=== PATIENT | male | born 1955 | race Hispanic/Latino ===

== ENCOUNTER 2018-02-13 21:28 | Emergency (ER) | payer MEDICARE, OTHER ==
[~2018-02-13] VITALS: Ht 185.4 cm; Wt 79.4 kg
--- OUTSIDE RECORDS SUMMARY | 2018-02-13 21:32 | XMS REPORT | Clinical Summary ---
Author Author GUEVAR[facility]ITTeton [facility] HospitalEtaoshi [facility] HospitalStayfilmYak[facility] Address Unknown Phone Unavailable Care Team Providers Care Stable Helper Name Role Phone Nilda Avalos MD PCP Unavailable Allergies No Known Allergies Medications End Date Status Medication Sig Dispensed Refills Start Date Active metoprolol (TOPROL-XL) 25 Take 25 mg by 0 MG 24 hr tablet mouth daily. Active traMADol (ULTRAM) 50 mg Take 50 mg by 0 tablet mouth every 6 (six) hours as needed for Pain . Active aspirin 81 MG EC tablet Take 81 mg by 0 mouth daily. Active atorvastatin (LIPITOR) 40 Take 40 mg by 0 MG tablet mouth daily. Active buPROPion (WELLBUTRIN XL) Take 150 mg 0 150 MG 24 hr tablet by mouth daily. Active valsartan (DIOVAN) 40 MG Take 40 mg by 0 tablet mouth daily. Active clopidogrel (PLAVIX) 75 Take 75 mg by 0 mg tablet mouth. Active PROGRAF 1 mg Take 1 60 capsule 5 capsuleIndications: S/P capsule (1 mg 8 liver transplant (HCC), total) by Immunosuppression (HCC) mouth 2 (two) times daily. Active sildenafil (VIAGRA) 100 Take 100 mg 0 MG tablet by mouth daily as needed for Erectile Dysfunction. Active simethicone (MYLICON) 80 Take 80 mg by 0 MG chewable tablet mouth as needed. 05/04/2017 Discontinued mycophenolate (CELLCEPT) Take 2 120 capsule 5 250 mg capsules (500 7 capsuleIndications: mg total) by Status post liver mouth 2 (two) transplantation (HCC), times daily. HCC (hepatocellular carcinoma) (HCC), Hepatitis C virus infection without hepatic coma, unspecified chronicity, Immunosuppression (HCC), Elevated liver enzymes 09/06/2017 Discontinued donepezil (ARICEPT) 5 MG Take 5 mg by 0 tablet mouth nightly. 09/06/2017 Discontinued tadalafil (CIALIS) 10 MG Take 10 mg by 0 tablet mouth daily as needed for Erectile Dysfunction. 06/03/2017 Discontinued PROGRAF 1 mg TAKE ONE 60 capsule 5 capsuleIndications: CAPSULE BY 7 Status post liver MOUTH TWICE transplantation (HCC), DAILY Immunosuppression (HCC) 09/06/2017 Discontinued mycophenolate (CELLCEPT) TAKE 2 120 capsule 5 250 mg CAPSULES(500 8 capsuleIndications: MG) BY MOUTH Status post liver TWICE DAILY transplantation (HCC), HCC (hepatocellular carcinoma) (HCC), Hepatitis C virus infection without hepatic coma, unspecified chronicity, Immunosuppression (HCC), Elevated liver enzymes 09/06/2017 Discontinued tacrolimus (PROGRAF) 1 MG Take 1 60 capsule 5 capsuleIndications: capsule (1 mg 8 Status post liver total) by transplantation (HCC), mouth 2 (two) Immunosuppression (HCC) times daily. 09/06/2017 Discontinued aluminum & magnesium Take 5 mLs by 0 hydroxide-simethicone mouth every 6 (MAALOX PLUS) 400-400-40 (six) hours mg/5 mL suspension as needed for Indigestion. Active Problems Problem Noted Date Hernia 07/31/2016 Ventral hernia 07/31/2016 Thrombocytopenia 07/26/2015 L thyroid nodule 07/26/2015 H/O liver transplant 07/26/2015 Cerebellar stroke 07/25/2015 Elevated liver enzymes 05/22/2015 Renal failure, acute 01/18/2014 Last Assessment & Plan: Renal failure requiring dialysis post-op, now resolved with normal Cr. Rash 12/21/2013 Last Assessment & Plan: Of an unclear etiology. Will refer to dermatology for further evaluation. Hypertension 08/10/2013 Last Assessment & Plan: -excellent BP control -continue current regimen Immunosuppression 08/10/2013 Last Assessment & Plan: -stable on prograf -D/C prednisone S/P liver transplant 08/02/2013 Last Assessment & Plan: 57 y/o male s/p OLT for HCV and HCC on 08/02/2013 who presents today for follow up. The patient is without complaints. He is scheduled for lab work which we will follow up. The patient is to return to clinic in 1 week. HCC (hepatocellular carcinoma) 12/26/2012 Last Assessment & Plan: -negative screening imaging thus far -patient to undergo screening US liver within next month -will send result to Oncology Hepatitis C 12/26/2012 Overview: Reportedly treated with interferon x1 year Last Assessment & Plan: No evidence of clinically significant recurrence; will continue to follow serial labs. 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 Management 01/13/2018 Telephone Transplant Hepatology Lilian Sauceda Labs Only (SPK W SPOUSE RE: LAB/RX RESULTS; NO MED CHANGES; REPEAT BLD WK X4 MTHS; 05/05/2018; [facility]; GGT;) 01/10/2018 Telephone Transplant Hepatology Logan Coreas MD 01/07/2018 Orders Only Transplant Hepatology Vanessa Nova, GLADIS Follow-up 09/30/2017 Telephone Transplant Hepatology Vanessa Nova, GLADIS Follow-up 09/10/2017 Telephone Transplant Hepatology Winnie Mcdowell Lab Results 09/09/2017 Telephone Transplant Hepatology Jeanne Calderon MD S/P liver transplant; Screening for malignant neoplasm; HCC (hepatocellular carcinoma) (HCC); Hepatitis C virus infection without hepatic coma, unspecified chronicity; Pulmonary nodule; Immunosuppression (HCC) 09/06/2017 Hospital Encounter Jeanne Calderon MD S/P liver transplant; Screening for malignant neoplasm; HCC (hepatocellular carcinoma) (HCC); Hepatitis C virus infection without hepatic coma, unspecified chronicity; Pulmonary nodule; Immunosuppression (HCC) 09/06/2017 Hospital Radiology Encounter Jeanne Calderon MD Cerebellar stroke (HCC); H/O liver transplant (HCC); HCC (hepatocellular carcinoma) (HCC); Hepatitis C virus infection without hepatic coma, unspecified chronicity; Immunosuppression (HCC); S/P liver transplant (HCC); Screening for malignant neoplasm 09/06/2017 Follow-Up Transplant Hepatology Jeanne Calderon MD S/P liver transplant; Screening for malignant neoplasm; HCC (hepatocellular carcinoma) (HCC); Hepatitis C virus infection without hepatic coma, unspecified chronicity; Pulmonary nodule; Immunosuppression (HCC) 09/06/2017 Orders Only Transplant Hepatology Vanessa Nova RN S/P liver transplant (Primary Dx); Immunosuppression (HCC) 08/09/2017 Orders Only Transplant Hepatology Winnie Mcdowell Lab Results 06/29/2017 Telephone Transplant Hepatology Logan Coreas MD Acute renal failure, unspecified acute renal failure type (HCC) (Primary Dx); S/P liver transplant; Immunosuppression (HCC); Hepatitis C virus carrier state (HCC); Kidney replaced by transplant; Essential hypertension, malignant; Chronic kidney disease, stage II (mild); Impending cerebrovascular accident (HCC); Hypopotassemia; Vitamin D deficiency 06/22/2017 Orders Only Lab Vanessa Nova RN S/P liver transplant (Primary Dx); Screening for malignant neoplasm; HCC (hepatocellular carcinoma) (HCC); Hepatitis C virus infection without hepatic coma, unspecified chronicity; Pulmonary nodule; Immunosuppression (HCC) 06/18/2017 Orders Only Transplant Hepatology Vanessa Nova, GLADIS Labs Only 06/18/2017 Telephone Transplant Hepatology Vanessa Nova, RN Follow-up 06/17/2017 Telephone Transplant Hepatology Vanessa Nova, GLADIS Status post liver transplantation (HCC); Immunosuppression (HCC) 06/03/2017 Orders Only Transplant Hepatology Logan Coreas MD Status post liver transplantation; HCC (hepatocellular carcinoma); Hepatitis C virus infection without hepatic coma, unspecified chronicity; Immunosuppression; Elevated liver enzymes 05/04/2017 Refill Transplant Hepatology Dina Santos Labs Only 03/04/2017 Telephone Transplant Hepatology after 02/12/2017 Immunizations Name Dates Previously Given Next Due Pneumococcal 09/19/2014 Polysaccharide (Pneumovax) Family History Relation Name Status Comments Brother Alive Father Alive Sister Alive Sister Alive Social History Date Tobacco Use Types Packs/Day Years Used Never Smoker 0 Smokeless Tobacco: Never Used Alcohol Use Drinks/Week oz/Week Comments No Sex Assigned at Date Recorded Not on file Industry Job Start Date Occupation Not on file Not on file Not on file Travel End Travel History Travel Start No recent travel history available. Last Filed Vital Signs Time Taken Vital Sign Reading 09/06/2017 10:04 AM CDT Blood Pressure 129/83 09/06/2017 10:04 AM CDT Pulse 66 09/06/2017 10:04 AM CDT Temperature 36.4 C (97.5 F) 09/06/2017 10:04 AM CDT Respiratory Rate 18 09/06/2017 10:04 AM CDT Oxygen Saturation 96% - Inhaled Oxygen - Concentration 09/06/2017 10:04 AM CDT Weight 89.5 kg (197 lb 6.4 oz) 09/06/2017 10:04 AM CDT Height 182.9 cm (6') 09/06/2017 10:04 AM CDT Body Mass Index 26.77 Plan of Treatment Health Maintenance Due Date Last Done Comments INFLUENZA VACCINE 11/08/2017 Implants Device Identifier Shelf Expiration Date Model / Serial / Lot Implanted Type Area Manufactur er 10/09/2015 [id number] / / [id number] Mesh,Ventralight St 4x6 Elliptical Mesh N/A: Abdomen [employer] - [id number] Implanted: Qty: 1 on 09/18/2014 by Paty Hall MD 02/04/2018 [id number] / / [id number] Mesh Ventralight 6x8 [id number] - Mesh N/A: Abdomen CR [id number] BARD:DAVOL Implanted: Qty: 1 on 07/31/2016 by Paty Hall MD Procedures Comments Procedure Name Priority Date/Time Associated Diagnosis TACROLIMUS Routine 01/07/2018 7:36 AM SENIOR PROCUREMENT MANAGER VITAMIN D, 25-HYDROXY Routine 01/07/2018 7:36 AM SENIOR PROCUREMENT MANAGER CBC W/PLT COUNT & AUTO Routine 01/07/2018 DIFFERENTIAL 7:36 AM SENIOR PROCUREMENT MANAGER HEPATIC FUNCTION PANEL Routine 01/07/2018 7:36 AM SENIOR PROCUREMENT MANAGER BASIC METABOLIC PANEL (7) Routine 01/07/2018 7:36 AM SENIOR PROCUREMENT MANAGER PHOSPHORUS Routine 01/07/2018 7:36 AM SENIOR PROCUREMENT MANAGER MAGNESIUM Routine 01/07/2018 7:36 AM SENIOR PROCUREMENT MANAGER US ABDOMINAL WITH DOPPLER Routine 09/06/2017 S/P liver transplant 12:20 PM CDT Screening for malignant neoplasm HCC (hepatocellular carcinoma) (HCC) Hepatitis C virus infection without hepatic coma, unspecified chronicity Pulmonary nodule Immunosuppression (HCC) XR CHEST 2 VIEWS Routine 09/06/2017 S/P liver transplant 11:28 AM CDT Screening for malignant neoplasm HCC (hepatocellular carcinoma) (HCC) Hepatitis C virus infection without hepatic coma, unspecified chronicity Pulmonary nodule Immunosuppression (HCC) CBC W/PLT COUNT & AUTO Routine 09/06/2017 S/P liver transplant DIFFERENTIAL 9:09 AM CDT Screening for malignant neoplasm HCC (hepatocellular carcinoma) (HCC) Hepatitis C virus infection without hepatic coma, unspecified chronicity Pulmonary nodule Immunosuppression (HCC) HEPATITIS C PCR, Routine 09/06/2017 S/P liver transplant QUANTITATIVE 9:09 AM CDT Screening for malignant neoplasm HCC (hepatocellular carcinoma) (HCC) Hepatitis C virus infection without hepatic coma, unspecified chronicity Pulmonary nodule Immunosuppression (HCC) TACROLIMUS LEVEL Routine 09/06/2017 S/P liver transplant 9:09 AM CDT Screening for malignant neoplasm HCC (hepatocellular carcinoma) (HCC) Hepatitis C virus infection without hepatic coma, unspecified chronicity Pulmonary nodule Immunosuppression (HCC) ALPHA FETOPROTEIN (AFP), Routine 09/06/2017 S/P liver transplant TUMOR MARKER 9:09 AM CDT Screening for malignant neoplasm HCC (hepatocellular carcinoma) (HCC) Hepatitis C virus infection without hepatic coma, unspecified chronicity Pulmonary nodule Immunosuppression (HCC) MAGNESIUM Routine 09/06/2017 S/P liver transplant 9:09 AM CDT Screening for malignant neoplasm HCC (hepatocellular carcinoma) (HCC) Hepatitis C virus infection without hepatic coma, unspecified chronicity Pulmonary nodule Immunosuppression (HCC) LIPID PANEL Routine 09/06/2017 S/P liver transplant 9:09 AM CDT Screening for malignant neoplasm HCC (hepatocellular carcinoma) (HCC) Hepatitis C virus infection without hepatic coma, unspecified chronicity Pulmonary nodule Immunosuppression (HCC) COMPREHENSIVE METABOLIC Routine 09/06/2017 S/P liver transplant PANEL 9:09 AM CDT Screening for malignant neoplasm HCC (hepatocellular carcinoma) (HCC) Hepatitis C virus infection without hepatic coma, unspecified chronicity Pulmonary nodule Immunosuppression (HCC) CBC W/PLT COUNT & AUTO Routine 09/06/2017 S/P liver transplant DIFFERENTIAL 9:09 AM CDT Screening for malignant neoplasm HCC (hepatocellular carcinoma) (HCC) Hepatitis C virus infection without hepatic coma, unspecified chronicity Pulmonary nodule Immunosuppression (HCC) BILIRUBIN, DIRECT Routine 09/06/2017 S/P liver transplant 9:09 AM CDT Screening for malignant neoplasm HCC (hepatocellular carcinoma) (HCC) Hepatitis C virus infection without hepatic coma, unspecified chronicity Pulmonary nodule Immunosuppression (HCC) CBC W/PLT COUNT & AUTO Routine 06/22/2017 S/P liver transplant DIFFERENTIAL 9:55 AM CDT Immunosuppression (HCC) Acute renal failure, unspecified acute renal failure type (HCC) Hepatitis C virus carrier state (HCC) Kidney replaced by transplant Essential hypertension, malignant Chronic kidney disease, stage II (mild) Impending cerebrovascular accident (HCC) Hypopotassemia Vitamin D deficiency CREATININE, RANDOM URINE Routine 06/22/2017 S/P liver transplant 9:55 AM CDT Immunosuppression (HCC) Acute renal failure, unspecified acute renal failure type (HCC) Hepatitis C virus carrier state (HCC) Kidney replaced by transplant Essential hypertension, malignant Chronic kidney disease, stage II (mild) Impending cerebrovascular accident (HCC) Hypopotassemia Vitamin D deficiency PROTEIN, RANDOM URINE Routine 06/22/2017 S/P liver transplant 9:55 AM CDT Immunosuppression (HCC) Acute renal failure, unspecified acute renal failure type (HCC) Hepatitis C virus carrier state (HCC) Kidney replaced by transplant Essential hypertension, malignant Chronic kidney disease, stage II (mild) Impending cerebrovascular accident (HCC) Hypopotassemia Vitamin D deficiency URINALYSIS W/ REFLEX Routine 06/22/2017 S/P liver transplant URINE CULTURE 9:55 AM CDT Immunosuppression (HCC) Acute renal failure, unspecified acute renal failure type (HCC) Hepatitis C virus carrier state (HCC) Kidney replaced by transplant Essential hypertension, malignant Chronic kidney disease, stage II (mild) Impending cerebrovascular accident (HCC) Hypopotassemia Vitamin D deficiency PHOSPHORUS Routine 06/22/2017 S/P liver transplant 9:55 AM CDT Immunosuppression (HCC) Acute renal failure, unspecified acute renal failure type (HCC) Hepatitis C virus carrier state (HCC) Kidney replaced by transplant Essential hypertension, malignant Chronic kidney disease, stage II (mild) Impending cerebrovascular accident (HCC) Hypopotassemia Vitamin D deficiency TACROLIMUS LEVEL Routine 06/22/2017 S/P liver transplant 9:55 AM CDT Immunosuppression (HCC) Acute renal failure, unspecified acute renal failure type (HCC) Hepatitis C virus carrier state (HCC) Kidney replaced by transplant Essential hypertension, malignant Chronic kidney disease, stage II (mild) Impending cerebrovascular accident (HCC) Hypopotassemia Vitamin D deficiency MAGNESIUM Routine 06/22/2017 S/P liver transplant 9:55 AM CDT Immunosuppression (HCC) Acute renal failure, unspecified acute renal failure type (HCC) Hepatitis C virus carrier state (HCC) Kidney replaced by transplant Essential hypertension, malignant Chronic kidney disease, stage II (mild) Impending cerebrovascular accident (HCC) Hypopotassemia Vitamin D deficiency CBC W/PLT COUNT & AUTO Routine 06/22/2017 S/P liver transplant DIFFERENTIAL 9:55 AM CDT Immunosuppression (HCC) Acute renal failure, unspecified acute renal failure type (HCC) Hepatitis C virus carrier state (HCC) Kidney replaced by transplant Essential hypertension, malignant Chronic kidney disease, stage II (mild) Impending cerebrovascular accident (HCC) Hypopotassemia Vitamin D deficiency COMPREHENSIVE METABOLIC Routine 06/22/2017 S/P liver transplant PANEL 9:55 AM CDT Immunosuppression (HCC) Acute renal failure, unspecified acute renal failure type (HCC) Hepatitis C virus carrier state (HCC) Kidney replaced by transplant Essential hypertension, malignant Chronic kidney disease, stage II (mild) Impending cerebrovascular accident (HCC) Hypopotassemia Vitamin D deficiency BILIRUBIN, DIRECT Routine 06/22/2017 S/P liver transplant 9:55 AM CDT Immunosuppression (HCC) Acute renal failure, unspecified acute renal failure type (HCC) Hepatitis C virus carrier state (HCC) Kidney replaced by transplant Essential hypertension, malignant Chronic kidney disease, stage II (mild) Impending cerebrovascular accident (HCC) Hypopotassemia Vitamin D deficiency after 02/12/2017 Results * TACROLIMUS (01/07/2018 7:36 AM SENIOR PROCUREMENT MANAGER) Tacrolimus, Highly 6.5 mcg/L [facility] Sensitive, LC/MS/MS Comment: ([facility]) No definitive therapeutic or toxic ranges have been established. Optimal blood drug levels are influenced by type of transplant, patient response, time post- transplant, co-administration of other drugs, and drug formulation. The following trough range is a suggested guideline: 5.0-20.0 mcg/L. This test was developed and its analytical performance characteristics have been determined by [facility]. It has not been cleared or approved by the FDA. This assay has been validated pursuant to the CLIA regulations and is used for clinical purposes. Narrative Performed At FASTING:YES [facility] FASTING: YES Resulting Agency Comment Performing Organization Information: Site ID: [id number] Name: [facility] Address: [address] [place] [phone] Director: Dr. Raymon Hirsch Performing Organization Address [facility] Phone Number [facility] [address] [place] [address] [facility] * Vitamin D, 25-Hydroxy (01/07/2018 7:36 AM SENIOR PROCUREMENT MANAGER) Vitamin D,25-Oh,Total 22 (L) 30 - 100 ng/mL [place] Comment: Vitamin D Status 25-OH Vitamin D: Deficiency: <20 ng/mL Insufficiency: 20 - 29 ng/mL Optimal: > or=30 ng/mL For 25-OH Vitamin D testing on patients on D2-supplementation and patients for whom quantitation of D2 and D3 fractions is required, the QuestAssureD(TM) 25-OH VIT D, (D2,D3), LC/MS/MS is recommended: order code 01321 (patients >2yrs). For more information on this test, go to: http://education.[employer].com/faq/[email or web address] (This link is being provided for informational/educational purposes only.) Narrative Performed At FASTING:YES [facility] FASTING: YES Resulting Agency Comment Performing Organization Information: Site ID: [id number] Name: [facility] Address: [address] [place] [phone] Director: July Alvarado Performing Organization Address City/[facility] Cent[facility] Phone Number [facility] [address] [place] [address] [facility] * CBC with platelet count + automated diff (01/07/2018 7:36 AM SENIOR PROCUREMENT MANAGER) WBC 5.5 3.8 - 10.8 Thousand/uL [facility] RBC 5.08 4.20 - 5.80 Million/uL [facility] Hemoglobin 14.8 13.2 - 17.1 g/dL [facility] Hematocrit 42.3 38.5 - 50.0 % [facility] MCV 83.3 80.0 - 100.0 fL [facility] MCH 29.1 27.0 - 33.0 pg [facility] MCHC 35.0 32.0 - 36.0 g/dL [facility] RDW 12.6 11.0 - 15.0 % [facility] Platelets 133 (L) 140 - 400 Thousand/uL [facility] MPV 11.4 7.5 - 12.5 fL [facility] # Neutros 3,168 1,500 - 7,800 cells/uL [facility] # Lymphs 1,595 850 - 3,900 cells/uL [facility] # Monos 468 200 - 950 cells/uL [facility] # Eos 248 15 - 500 cells/uL [facility] # Baso 22 0 - 200 cells/uL [facility] % Neutros 57.6 % [facility] % Lymphs 29.0 % [facility] % Monos 8.5 % [facility] % Eos 4.5 % [facility] % Baso 0.4 % [facility] Narrative Performed At FASTING:YES [facility] FASTING: YES Resulting Agency Comment Performing Organization Information: Site ID: [id number] Name: [facility] Address: [address] [place] [id number] Director: July Alvarado Performing Organization Address City/State/Zipcode Phone Number [facility] [address] [place] [address] [facility] * Phosphorus (01/07/2018 7:36 AM SENIOR PROCUREMENT MANAGER) Only the most recent of 2 results within the time period is included. Phosphorus, Serum 1.9 (L) 2.5 - 4.5 mg/dL [facility] Narrative Performed At FASTING:YES [facility] FASTING: YES Resulting Agency Comment Performing Organization Information: Site ID: [id number] Name: [facility] [employer] Address: [address] [place] [phone] Director: July Alvarado Performing Organization Address [facility] Phone Number [facility] [address] [place] [address] [facility] * Magnesium (01/07/2018 7:36 AM SENIOR PROCUREMENT MANAGER) Only the most recent of 3 results within the time period is included. Magnesium, Serum 1.5 1.5 - 2.5 mg/dL [facility] Narrative Performed At FASTING:YES [facility] FASTING: YES Resulting Agency Comment Performing Organization Information: Site ID: [id number] Name: [facility] Address: [address] [place] [phone] Director: July Alvarado Performing Organization Address [facility] Phone Number [employer] [address] [place] [address] [facility] * Hepatic function panel (01/07/2018 7:36 AM SENIOR PROCUREMENT MANAGER) Protein, Total, Serum 6.5 6.1 - 8.1 g/dL [facility] Albumin 4.3 3.6 - 5.1 g/dL [facility] GLOBULIN ([facility]) 2.2 1.9 - 3.7 g/dL (calc) [facility] Albumin Globulin Ratio 2.0 1.0 - 2.5 (calc) [facility] Bilirubin, Total 0.9 0.2 - 1.2 mg/dL [facility] Bilirubin, Direct 0.3 (H) < OR=0.2 mg/dL [facility] Bilirubin, Indirect 0.6 0.2 - 1.2 mg/dL (calc) [facility] Alkaline Phosphatase, S 95 40 - 115 U/L [facility] AST (SGOT) 28 10 - 35 U/L [facility] ALT (SGPT) 44 9 - 46 U/L [facility] Narrative Performed At FASTING:YES [facility] FASTING: YES Resulting Agency Comment Performing Organization Information: Site ID: [id number] Name: [facility] Address: [address] [place] [phone] Director: July Alvarado Performing Organization Address [facility] Phone Number [employer] [address] [place] [address] [facility] * Basic Metabolic Panel (01/07/2018 7:36 AM SENIOR PROCUREMENT MANAGER) Glucose 107 (H) 65 - 99 mg/dL [facility] Comment: Fasting reference interval For someone without known diabetes, a glucose value between 100 and 125 mg/dL is consistent with prediabetes and should be confirmed with a follow-up test. BUN 19 7 - 25 mg/dL [facility] Creatinine 1.01 0.70 - 1.25 mg/dL [facility] Comment: For patients >49 years of age, the reference limit for Creatinine is approximately 13% higher for people identified as -[place] African. eGFR If NonAfricn Am 80 > OR=60 mL/min/1.73m2 [facility] eGFR If Africn Am 93 > OR=60 mL/min/1.73m2 [facility] BUN/Creatinine Ratio NOT APPLICABLE 6 - 22 (calc) [facility] Sodium 141 135 - 146 mmol/L [facility] Potassium, Serum 3.8 3.5 - 5.3 mmol/L [facility] Chloride 105 98 - 110 mmol/L [facility] Carbon Dioxide, Total 28 20 - 32 mmol/L [facility] Calcium, Serum 8.9 8.6 - 10.3 mg/dL [facility] Narrative Performed At FASTING:YES [facility] FASTING: YES Resulting Agency Comment Performing Organization Information: Site ID: [id number] Name: [facility] Address: [address] [place] [id number] Director: July Alvarado Performing Organization Address City/State/Zipcode Phone Number [facility] [address] [place] [address] [facility] * US abdominal with doppler (09/06/2017 12:20 PM CDT) Narrative Performed At FINAL REPORT [employer] TECHNIQUE: Grayscale ultrasound of the abdomen with color Doppler and spectral Doppler ultrasound of the portal/hepatic vasculature. INDICATION: 61-year-old man with hepatocellular carcinoma status post liver transplant. COMPARISON: Abdomen ultrasound 09/01/2016. FINDINGS: LIVER: Prior ectopic liver transplantation. The liver is normal in size. Increased echogenicity of the liver, consistent with hepatic steatosis. Smooth liver contour. No focal liver lesions. HEPATIC VASCULATURE: The main portal vein measures 1.2 cm in diameter. Portal veins are patent with normal waveform and directionality. Flow velocity in the main portal vein is within normal limits. The hepatic arteries are patent with normal flow velocities, resistive indices, and waveforms. The hepatic veins and confluence are patent. BILIARY: Gallbladder: Prior cholecystectomy. Common bile duct measures 0.6 cm, within normal limits. No intrahepatic biliary ductal dilatation. PANCREAS: Incompletely visualized due to overlying bowel gas. SPLEEN: No splenomegaly. PERITONEUM: No free fluid. KIDNEYS: Normal in size bilaterally. No hydronephrosis. No sonographically evident solid mass lesion. MIDLINE VASCULATURE: The visualized inferior vena cava is patent. The maximum visualized aortic diameter is 2.9 cm.Splenic artery and vein are patent. IMPRESSION: Steatosis of the transplant liver. Unremarkable Doppler evaluation of the hepatic/portal vasculature. Signed: Bhargav Morales MD Report Verified Date/Time:09/06/2017 14:11:43 Reading Location: [address] Radiology Reading Room Procedure Note Interface, External Ris In - 09/06/2017 2:13 PM CDT FINAL REPORT TECHNIQUE: Grayscale ultrasound of the abdomen with color Doppler and spectral Doppler ultrasound of the portal/hepatic vasculature. INDICATION: 61-year-old man with hepatocellular carcinoma status post liver transplant. COMPARISON: Abdomen ultrasound 09/01/2016. FINDINGS: LIVER: Prior ectopic liver transplantation. The liver is normal in size. Increased echogenicity of the liver, consistent with hepatic steatosis. Smooth liver contour. No focal liver lesions. HEPATIC VASCULATURE: The main portal vein measures 1.2 cm in diameter. Portal veins are patent with normal waveform and directionality. Flow velocity in the main portal vein is within normal limits. The hepatic arteries are patent with normal flow velocities, resistive indices, and waveforms. The hepatic veins and confluence are patent. BILIARY: Gallbladder: Prior cholecystectomy. Common bile duct measures 0.6 cm, within normal limits. No intrahepatic biliary ductal dilatation. PANCREAS: Incompletely visualized due to overlying bowel gas. SPLEEN: No splenomegaly. PERITONEUM: No free fluid. KIDNEYS: Normal in size bilaterally. No hydronephrosis. No sonographically evident solid mass lesion. MIDLINE VASCULATURE: The visualized inferior vena cava is patent. The maximum visualized aortic diameter is 2.9 cm. Splenic artery and vein are patent. IMPRESSION: Steatosis of the transplant liver. Unremarkable Doppler evaluation of the hepatic/portal vasculature. Signed: Bhargav Morales MD Report Verified Date/Time: 09/06/2017 14:11:43 Reading Location: [address] Radiology Reading Room Performing Organization Address City/[facility] Cent[facility]ode Phone Number GE RIS * XR chest 2 views (09/06/2017 11:28 AM CDT) Narrative Performed At FINAL REPORT RIS TECHNIQUE: Frontal and lateral views of the chest. INDICATION: 61-year-old man with hepatocellular carcinoma status post liver transplant. COMPARISON: Chest radiographs 09/01/2016. FINDINGS: LINES/TUBES: Unchanged epidural leads project over the mid thoracic spine. LUNGS: The lungs are well inflated and clear. PLEURA: No pleural effusion or pneumothorax. HEART AND MEDIASTINUM: The cardiomediastinal silhouette is within normal limits. Tortuous thoracic aorta. SOFT TISSUES AND BONES: Bones are unremarkable. Prior ventral hernia repair. IMPRESSION: No acute cardiopulmonary abnormalities. No significant change since 09/01/2016. Signed: Bhargav Morales MD Report Verified Date/Time:09/06/2017 13:10:18 Reading Location: [address] Radiology Reading Room Procedure Note Interface, External Ris In - 09/06/2017 1:12 PM CDT FINAL REPORT TECHNIQUE: Frontal and lateral views of the chest. INDICATION: 61-year-old man with hepatocellular carcinoma status post liver transplant. COMPARISON: Chest radiographs 09/01/2016. FINDINGS: LINES/TUBES: Unchanged epidural leads project over the mid thoracic spine. LUNGS: The lungs are well inflated and clear. PLEURA: No pleural effusion or pneumothorax. HEART AND MEDIASTINUM: The cardiomediastinal silhouette is within normal limits. Tortuous thoracic aorta. SOFT TISSUES AND BONES: Bones are unremarkable. Prior ventral hernia repair. IMPRESSION: No acute cardiopulmonary abnormalities. No significant change since 09/01/2016. Signed: Bhargav Morales MD Report Verified Date/Time: 09/06/2017 13:10:18 Reading Location: [address] Radiology Reading Room Performing Organization Address City/[facility] Centercode Phone Number GE RIS * CBC with platelet count + automated diff (09/06/2017 9:09 AM CDT) Only the most recent of 2 results within the time period is included. WBC 5.5 3.5 - 10.5 K/L [facility] RBC 5.09 4.63 - 6.08 M/L [facility] Hemoglobin 14.9 13.7 - 17.5 GM/DL [facility] Hematocrit 42.7 40.1 - 51.0 % [facility] MCV 83.9 79.0 - 92.2 fL [facility] MCH 29.3 25.7 - 32.2 pg [facility] MCHC 34.9 32.3 - 36.5 GM/DL [facility] RDW 12.5 11.6 - 14.4 % [facility] Platelets 115 (L) 150 - 450 K/CU MM [facility] MPV 11.3 9.4 - 12.4 fL [facility] nRBC 0 0 - 0 /100 WBC [facility] % Neutros 61 % [facility] % Lymphs 28 % [facility] % Monos 7 % [facility] % Eos 3 % [facility] % Baso 1 % [facility] # Neutros 3.36 1.78 - 5.38 K/L [facility] # Lymphs 1.52 1.32 - 3.57 K/L [facility] # Monos 0.40 0.30 - 0.82 K/L [facility] # Eos 0.16 0.04 - 0.54 K/L [facility] # Baso 0.03 0.01 - 0.08 K/L [facility] Immature 1 0 - 1 % [facility] Granulocytes-Relative [facility] Specimen Blood Performing Organization Address City/[facility]/Zipcode Phone Number [address] * Tacrolimus level (09/06/2017 9:09 AM CDT) Only the most recent of 2 results within the time period is included. Tacrolimus Lvl 5.5 (L) 10.0 - 20.0 ng/mL [facility] Specimen Blood Performing Organization Address City/[facility] Centercode Phone Number [address] * Alpha fetoprotein (AFP), tumor marker (09/06/2017 9:09 AM CDT) Alpha-Fetoprotein 4.0 <10.0 ng/mL [facility] Specimen Blood Performing Organization Address City/[facility] Centerconm Phone Number [address] * Hepatitis C PCR, Quantitative (09/06/2017 9:09 AM CDT) HCV PCR, Quantitative HCV RNA not detected HCV RNA not detected [facility] Specimen Blood Narrative Performed At This test uses a Real-Time Polymerase Chain Reaction (RT-PCR) methodology and [facility] was performed using [employer] Amplip[employer] TaqMan HCV test kit version 2.0 [facility] ([employer] Reportable range for this assay is 15 - 100,000,000 IU per mL (1.18 - 8.00 Log IU/mL). Performing Organization Address City/[facility] Centercode Phone Number [address] * Bilirubin, direct (09/06/2017 9:09 AM CDT) Only the most recent of 2 results within the time period is included. Bilirubin, Direct 0.5 0.1 - 0.5 mg/dL [facility] Specimen Blood Performing Organization Address City/[facility]/Zipcode Phone Number [facility] [address] [place] [address] [facility] * Lipid panel (09/06/2017 9:09 AM CDT) Triglycerides 98 mg/dL [facility] Cholesterol 94 mg/dL [facility] HDL 32 mg/dL [facility] LDL Calculated 42 mg/dL [facility] Specimen Blood Narrative Performed At Triglyceride Reference Range: [facility] Low Risk <150 [facility] [id number] High Risk 200-499 Very High Risk>=500 Cholesterol Reference Range: Low Risk <200 [id number] High Risk>240 HDL Cholesterol Reference Range: Low Risk >=60 High Risk <40 LDL Cholesterol Reference Range: Optimal<100 Near [id number] Very High >=190 Performing Organization Address City/[facility] Centercode Phone Number [facility] [address] [place], [place] [phone] [facility] * Comprehensive metabolic panel (09/06/2017 9:09 AM CDT) Only the most recent of 2 results within the time period is included. Protein, Total 6.8 6.0 - 8.3 gm/dL [facility] Albumin 4.3 3.5 - 5.0 g/dL [facility] Alkaline Phosphatase 95 40 - 150 U/L [facility] Total Bilirubin 0.9 0.2 - 1.2 mg/dL [facility] Sodium 134 (L) 136 - 145 meq/L [facility] Potassium 3.5 3.5 - 5.1 meq/L [facility] Chloride 103 98 - 107 meq/L [facility] CO2 25 22 - 29 meq/L [facility] BUN 19 7 - 21 mg/dL [facility] Creatinine 1.04 0.57 - 1.25 mg/dL [facility] Glucose 109 (H) 70 - 105 mg/dL [facility] Calcium 8.8 8.4 - 10.2 mg/dL [facility] AST 27 5 - 34 U/L [facility] ALT 40 6 - 55 U/L [facility] EGFR 73Comment: ESTIMATED GFR IS mL/min/1.73 sq m [facility] NOT ACCURATE CREATININE [facility] CLEARANCE IN PREDICTING GLOMERULAR FILTRATION RATE. ESTIMATED GFR IS NOT APPLICABLE FOR DIALYSIS PATIENTS. Specimen Blood Performing Organization Address City/State/Zipcode Phone Number [facility] [address] [place] [address] [facility] * Urinalysis w/Microscopic + Reflex to Culture (06/22/2017 9:55 AM CDT) Color, UA Yellow [facility] Clarity, UA Clear [facility] Specific [place], UA 1.018 1.001 - 1.035 [facility] pH, UA 6.0 5.0 - 8.0 [facility] Protein, UA 10 mg/dL (A) Negative [facility] Glucose, UA Negative Negative [facility] Ketones, UA Negative Negative [facility] Bilirubin, UA Negative Negative [facility] Blood, UA Trace (A) Negative [facility] Nitrite, UA Negative Negative [facility] Leukocytes, UA Negative Negative [facility] Urobilinogen, UA 0.2 0.2 - 1.0 mg/dL [facility] RBC, UA 1 /HPF [facility] WBC, UA <1 /HPF [facility] Mucus Moderate [facility] Specimen Source [facility] Specimen Urine - Urine, Voided Performing Organization Address City/State/Zipcode Phone Number [facility] [address] [place], [place] [phone] [facility] * Protein, random urine (06/22/2017 9:55 AM CDT) Protein, Urine 12 0 - 14 mg/dL [facility] Specimen Urine - Urine, Voided Performing Organization Address City/[facility]/Zipcode Phone Number [facility] [address] [place] [phone] [facility] * Creatinine, random urine (06/22/2017 9:55 AM CDT) Creatinine, Ur 242.1 mg/dL [facility] Specimen Urine - Urine, Voided Narrative Performed At Reference Range: No Normals [facility] Performing Organization Address [facility] Centercode Phone Number [facility] [address] [place] [address] [facility] after 02/12/2017 Insurance Payer Benefit Subscriber ID Type Phone Address Plan / Group MEDICARE MEDICARE A xxxxxxxxxx Medicare B [employer] C[employer] xxxxxxxxxxx Transplant TRANSPLANT LIFESOURCE [facility] TRANSPLANT Advance Directives For more information, please contact: [address] [address] Date Inactivated Comments Code Status Date Activated 07/31/2016 3:43 PM Full Code 07/31/2016 6:12 AM This code status was determined by: Patient 07/28/2015 5:38 PM Full Code 07/25/2015 3:26 PM This code status was determined by: Patient 09/19/2014 9:28 PM Full Code 09/18/2014 11:02 PM This code status was determined by: Patient 10/21/2013 6:09 AM Full Code 09/07/2013 1:47 PM This code status was determined by: Patient 08/07/2013 9:28 PM Full Code 08/02/2013 8:55 PM This code status was determined by: Patient
--- OUTSIDE RECORDS SUMMARY | 2018-02-13 21:32 | XMS REPORT ---
Author Author [facility] Address Unknown Phone Unavailable Care Team Providers Care Sql Report Writer Name Role Phone CHRISTIAN CHRISTINE EMIL Unavailable Unavailable RUPAL MERCEDES Unavailable Unavailable Yusef GRANT Unavailable Unavailable HEENA CHANDLER Unavailable Unavailable RANA, VICKI BUCKER ABBAS Unavailable Unavailable Problems This patient has no known problems. Allergies, Adverse Reactions, Alerts This patient has no known allergies or adverse reactions. Medications This patient has no known medications. Results Test Description Test Time Test Comments Text Results Atomic Results Result Comments HEPATITIS C PCR, QUANTITATIVE 2017-09-08 10:02:00 HCV RESULT COMPONENT (JOSE CRUZ) (test spkl=6707) HCV RNA not detected HCV RNA not detected This test uses a Real-Time Polymerase Chain Reaction (RT-PCR) methodology and wa s performed using JORGE LUIS Ampliprep/JORGE LUIS TaqMan HCV test kit version 2.0 ([employer]).Reportable range for this assay is 15 - 100,000,000 IU per mL (1.18 - 8.00 Log IU/mL).U/S, ABDOMINAL, WITH [id number] 14:11:00 Doppler Study to evaluate Hepatic vesselsDoppler study to evaluate hepatic vesse ls; Hx: HCCReason for Exam:->post OLT; evaluate hepatic vessels; Hx: HCCFINAL REPORT TECHNIQUE: Grayscale ultrasound of the abdomen with color Doppler and spectral Doppler ultrasound of the portal/hepatic vasc ulature. INDICATION: 61-year-old man with hepatocellular carcinoma status post l iver transplant. COMPARISON: Abdomen ultrasound 09/01/2016. FINDINGS: LIVER: Sofia or ectopic liver transplantation. The liver is normal in size. Increased echogen icity of the liver, consistent with hepatic steatosis. Smooth liver contour. No focal liver lesions. HEPATIC VASCULATURE: The main portal vein measures 1.2 cm i n diameter. Portal veins are patent with normal waveform and directionality. Nikhil w velocity in the main portal vein is within normal limits. The hepatic arteries are patent with normal flow velocities, resistive indices, and waveforms. The h epatic veins and confluence are patent. BILIARY:Gallbladder: Prior cholecystecto my.Common bile duct measures 0.6 cm, within normal limits. No intrahepatic bilia ry ductal dilatation. PANCREAS: Incompletely visualized due to overlying bowel g as. SPLEEN: No splenomegaly. PERITONEUM: No free fluid. KIDNEYS: Normal in size bilaterally. No hydronephrosis. No sonographically evident solid mass lesion. CT DLINE VASCULATURE: The visualized inferior vena cava is patent. The maximum visu alized aortic diameter is 2.9 cm. Splenic artery and vein are patent. IMPRESSI ON:Steatosis of the transplant liver. Unremarkable Doppler evaluation of the hep atic/portal vasculature. Signed: Bhargav Moralesort Verified Date/Time: 0 09/06/2017 14:11:43 Reading Location: [address] Radiology Reading Room Cheryl ctronically signed by: BHARGAV MORALES MD on 09/06/2017 02:11 PM RAD, CHEST, 2 [id number] 13:10:00PA and Lateral for Liver TransplantReason for Exam:->Post OLT; HCC surveillanceFINAL REPORT TECHNIQUE: Frontal and lateral views of [...] Bones are unremarkable. Prior ventral hernia repair. IMPRESSION:No acute cardiopulmonary abnormalities. No significant change since 09/01/2016. Signed: Bhargav Morales MDReport Verified Date/Time: 09/06/2017 13:10:18 Reading Location: [address] Radiology Reading Room E lectronically signed by: BHARGAV MORALES MD on 09/06/2017 01:10 PM TACROLIMUS [id number] 12:04:00* Test Item Value Reference Range Comments TACROLIMUS BLOOD (BEAKER) (test ynbk=568) 5.5 ng/mL 10.0-20.0 [id number] 10:53:00* Test Item Value Reference Range Comments MAGNESIUM (BEAKER) (test asap=272) 1.8 mg/dL 1.6-2.6 COMPREHENSIVE METABOLIC [id number] 10:53:00* Test Item Value Reference Range Comments TOTAL PROTEIN (BEAKER) (test voum=270) 6.8 gm/dL 6.0-8.3 ALBUMIN (BEAKER) (test gxuf=9554) 4.3 g/dL 3.5-5.0 ALKALINE PHOSPHATASE (BEAKER) (test qtqi=263) 95 U/L 40-150 BILIRUBIN TOTAL (BEAKER) (test suup=999) 0.9 mg/dL 0.2-1.2 SODIUM (BEAKER) (test pqbl=577) 134 meq/L 136-145 POTASSIUM (BEAKER) (test bciy=651) 3.5 meq/L 3.5-5.1 CHLORIDE (BEAKER) (test evfh=373) 103 meq/L 98-107 CO2 (BEAKER) (test mins=676) 25 meq/L 22-29 BLOOD UREA NITROGEN (BEAKER) (test mxbh=964) 19 mg/dL 7-21 CREATININE (BEAKER) (test aaon=014) 1.04 mg/dL 0.57-1.25 GLUCOSE RANDOM (BEAKER) (test pfto=486) 109 mg/dL 70-105 CALCIUM (BEAKER) (test ctap=072) 8.8 mg/dL 8.4-10.2 AST (SGOT) (BEAKER) (test nvhk=224) 27 U/L 5-34 ALT (SGPT) (BEAKER) (test tyfq=659) 40 U/L 6-55 EGFR (BEAKER) (test smqy=4962) 73 mL/min/1.73 sq m ESTIMATED GFR IS NOT ACCURATE CREATININE CLEARANCE IN PREDICTING GLOMERULAR FILTRATION RATE. ESTIMATED GFR IS NOT APPLICABLE FOR DIALYSIS PATIENTS. LIPID [id number] 10:53:00* Test Item Value Reference Range Comments TRIGLYCERIDES (BEAKER) (test gddx=801) 98 mg/dL CHOLESTEROL (BEAKER) (test wzjn=485) 94 mg/dL HDL CHOLESTEROL (BEAKER) (test kpjx=441) 32 mg/dL LDL CHOLESTEROL CALCULATED (BEAKER) (test jpqr=365) 42 mg/dL Triglyceride Reference Range: Low Risk <150 Borderline 150-199 High Risk 200-499 Very High Risk >=500Cholesterol Reference Range: Low Risk <200 Borderline 200-239 High Risk >240HDL Cholesterol Reference Range: Low Risk >=60 High Risk <40LDL Cholesterol Reference Range: Optimal <100 Near Optimal 100-129 Borderline 130-159 High 160-189 Very High >=190 BILIRUBIN, [id number] 10:53:00* Test Item Value Reference Range Comments BILIRUBIN DIRECT (BEAKER) (test cfqw=419) 0.5 mg/dL 0.1-0.5 ALPHA FETOPROTEIN (AFP), TUMOR [id number] 10:48:00* Test Item Value Reference Range Comments ALPHA-FETOPROTEIN (BEAKER) (test zkjp=2992) 4.0 ng/mL <10.0 CBC W/PLT COUNT & AUTO [id number] 09:43:00* Test Item Value Reference Range Comments WHITE BLOOD CELL COUNT (BEAKER) (test hwho=182) 5.5 K/ L 3.5-10.5 RED BLOOD CELL COUNT (BEAKER) (test ckmj=068) 5.09 M/ L 4.63-6.08 HEMOGLOBIN (BEAKER) (test ykjy=097) 14.9 GM/DL 13.7-17.5 HEMATOCRIT (BEAKER) (test xuil=214) 42.7 % 40.1-51.0 MEAN CORPUSCULAR VOLUME (BEAKER) (test nfop=956) 83.9 fL 79.0-92.2 MEAN CORPUSCULAR HEMOGLOBIN (BEAKER) (test wnmo=982) 29.3 pg 25.7-32.2 MEAN CORPUSCULAR HEMOGLOBIN CONC (BEAKER) (test wzwk=887) 34.9 GM/DL 32.3-36.5 RED CELL DISTRIBUTION WIDTH (BEAKER) (test zzzm=607) 12.5 % 11.6-14.4 PLATELET COUNT (BEAKER) (test zjlm=295) 115 K/CU MM 150-450 MEAN PLATELET VOLUME (BEAKER) (test xxbv=471) 11.3 fL 9.4-12.4 NUCLEATED RED BLOOD CELLS (BEAKER) (test yhcy=714) 0 /100 WBC 0-0 NEUTROPHILS RELATIVE PERCENT (BEAKER) (test qqau=275) 61 % LYMPHOCYTES RELATIVE PERCENT (BEAKER) (test lpdg=347) 28 % MONOCYTES RELATIVE PERCENT (BEAKER) (test vsmn=179) 7 % EOSINOPHILS RELATIVE PERCENT (BEAKER) (test olhj=894) 3 % BASOPHILS RELATIVE PERCENT (BEAKER) (test brqr=445) 1 % NEUTROPHILS ABSOLUTE COUNT (BEAKER) (test qlze=366) 3.36 K/ L 1.78-5.38 LYMPHOCYTES ABSOLUTE COUNT (BEAKER) (test hukf=945) 1.52 K/ L 1.32-3.57 MONOCYTES ABSOLUTE COUNT (BEAKER) (test swxo=420) 0.40 K/ L 0.30-0.82 EOSINOPHILS ABSOLUTE COUNT (BEAKER) (test cewt=445) 0.16 K/ L 0.04-0.54 BASOPHILS ABSOLUTE COUNT (BEAKER) (test czsj=233) 0.03 K/ L 0.01-0.08 IMMATURE GRANULOCYTES-RELATIVE PERCENT (BEAKER) (test ojwa=2730) 1 % 0-1 TACROLIMUS [id number] 14:04:00* Test Item Value Reference Range Comments TACROLIMUS BLOOD (BEAKER) (test sine=946) 5.7 ng/mL 10.0-20.0 CREATININE, RANDOM [id number] 11:30:00* Test Item Value Reference Range Comments CREATININE URINE (BEAKER) (test mgnp=806) 242.1 mg/dL Reference Range: No [id number] 11:25:00* Test Item Value Reference Range Comments PHOSPHORUS (BEAKER) (test tkfo=264) 1.9 mg/dL 2.3-4.7 PROTEIN, RANDOM [id number] 11:17:00* Test Item Value Reference Range Comments PROTEIN, URINE (BEAKER) (test vpzn=9776) 12 mg/dL 0-14 URINALYSIS W/ REFLEX URINE [id number] 11:13:00* Test Item Value Reference Range Comments COLOR (BEAKER) (test osxt=434) Yellow CLARITY (BEAKER) (test vuaf=904) Clear SPECIFIC GRAVITY UA (BEAKER) (test ibnz=063) 1.018 1.001-1.035 PH UA (BEAKER) (test vnbg=424) 6.0 5.0-8.0 PROTEIN UA (BEAKER) (test edoi=202) 10 mg/dL Negative GLUCOSE UA (BEAKER) (test cihm=908) Negative Negative KETONES UA (BEAKER) (test wqqh=382) Negative Negative BILIRUBIN UA (BEAKER) (test enyj=730) Negative Negative BLOOD UA (BEAKER) (test lzli=020) Trace Negative NITRITE UA (BEAKER) (test qsys=518) Negative Negative LEUKOCYTE ESTERASE UA (BEAKER) (test swpl=667) Negative Negative UROBILINOGEN UA (BEAKER) (test vctk=414) 0.2 mg/dL 0.2-1.0 RBC UA (BEAKER) (test nxis=652) 1 /HPF WBC UA (BEAKER) (test dess=626) < /HPF MUCUS (BEAKER) (test viej=9806) Moderate SOURCE(BEAKER) (test cvjz=6051) [id number] 10:45:00* Test Item Value Reference Range Comments MAGNESIUM (BEAKER) (test qakn=102) 1.9 mg/dL 1.6-2.6 Specimen slightly hemolyzed COMPREHENSIVE METABOLIC [id number] 10:45:00* Test Item Value Reference Range Comments TOTAL PROTEIN (BEAKER) (test rble=512) 7.1 gm/dL 6.0-8.3 Specimen slightly hemolyzed ALBUMIN (BEAKER) (test ohym=3745) 4.4 g/dL 3.5-5.0 Specimen slightly hemolyzed ALKALINE PHOSPHATASE (BEAKER) (test aati=967) 99 U/L 40-150 BILIRUBIN TOTAL (BEAKER) (test fllq=673) 1.2 mg/dL 0.2-1.2 Specimen slightly hemolyzed SODIUM (BEAKER) (test ycvu=793) 139 meq/L 136-145 POTASSIUM (BEAKER) (test zpli=685) 4.2 meq/L 3.5-5.1 Specimen slightly hemolyzed CHLORIDE (BEAKER) (test tznx=651) 103 meq/L 98-107 CO2 (BEAKER) (test ctae=799) 28 meq/L 22-29 BLOOD UREA NITROGEN (BEAKER) (test biqd=432) 13 mg/dL 7-21 CREATININE (BEAKER) (test tdlp=459) 0.91 mg/dL 0.57-1.25 Specimen slightly hemolyzed GLUCOSE RANDOM (BEAKER) (test ksmk=778) 102 mg/dL 70-105 CALCIUM (BEAKER) (test czsk=392) 9.3 mg/dL 8.4-10.2 AST (SGOT) (BEAKER) (test iict=433) 47 U/L 5-34 Specimen slightly hemolyzed ALT (SGPT) (BEAKER) (test xxmf=407) 69 U/L 6-55 Specimen slightly hemolyzed EGFR (BEAKER) (test chle=2393) 85 mL/min/1.73 sq m ESTIMATED GFR IS NOT ACCURATE CREATININE CLEARANCE IN PREDICTING GLOMERULAR FILTRATION RATE. ESTIMATED GFR IS NOT APPLICABLE FOR DIALYSIS PATIENTS. BILIRUBIN, [id number] 10:45:00* Test Item Value Reference Range Comments BILIRUBIN DIRECT (BEAKER) (test vboc=999) 0.4 mg/dL 0.1-0.5 Specimen slightly hemolyzed CBC W/PLT COUNT & AUTO [id number] 10:29:00* Test Item Value Reference Range Comments WHITE BLOOD CELL COUNT (BEAKER) (test xios=935) 4.4 K/ L 3.5-10.5 RED BLOOD CELL COUNT (BEAKER) (test gwfl=926) 5.43 M/ L 4.63-6.08 HEMOGLOBIN (BEAKER) (test zotp=394) 15.9 GM/DL 13.7-17.5 HEMATOCRIT (BEAKER) (test lcyl=316) 45.2 % 40.1-51.0 MEAN CORPUSCULAR VOLUME (BEAKER) (test xjbm=534) 83.2 fL 79.0-92.2 MEAN CORPUSCULAR HEMOGLOBIN (BEAKER) (test gsto=351) 29.3 pg 25.7-32.2 MEAN CORPUSCULAR HEMOGLOBIN CONC (BEAKER) (test ygua=575) 35.2 GM/DL 32.3-36.5 RED CELL DISTRIBUTION WIDTH (BEAKER) (test vyib=873) 12.7 % 11.6-14.4 PLATELET COUNT (BEAKER) (test rwgs=764) 140 K/CU MM 150-450 MEAN PLATELET VOLUME (BEAKER) (test csaw=981) 10.7 fL 9.4-12.4 NUCLEATED RED BLOOD CELLS (BEAKER) (test ddck=122) 0 /100 WBC 0-0 NEUTROPHILS RELATIVE PERCENT (BEAKER) (test opmv=542) 57 % LYMPHOCYTES RELATIVE PERCENT (BEAKER) (test ypgl=032) 31 % MONOCYTES RELATIVE PERCENT (BEAKER) (test ftby=115) 7 % EOSINOPHILS RELATIVE PERCENT (BEAKER) (test awdz=344) 3 % BASOPHILS RELATIVE PERCENT (BEAKER) (test chqg=037) 1 % NEUTROPHILS ABSOLUTE COUNT (BEAKER) (test komo=454) 2.51 K/ L 1.78-5.38 LYMPHOCYTES ABSOLUTE COUNT (BEAKER) (test jcjp=453) 1.37 K/ L 1.32-3.57 MONOCYTES ABSOLUTE COUNT (BEAKER) (test dpry=133) 0.32 K/ L 0.30-0.82 EOSINOPHILS ABSOLUTE COUNT (BEAKER) (test mngs=962) 0.14 K/ L 0.04-0.54 BASOPHILS ABSOLUTE COUNT (BEAKER) (test mygg=255) 0.02 K/ L 0.01-0.08 IMMATURE GRANULOCYTES-RELATIVE PERCENT (BEAKER) (test elxd=5484) 1 % 0-1 HEPATITIS C PCR, [id number] 08:51:00* Test Item Value Reference Range Comments HCV RESULT COMPONENT (BEAKER) (test ijuu=5516) HCV RNA not detected HCV RNA not detected This test uses a Real-Time Polymerase Chain Reaction (RT-PCR) methodology and wa s performed using JORGE LUIS Ampliprep/JORGE LUIS TaqMan HCV test kit version 2.0 ([employer]).Reportable range for this assay is 15 - 100,000,000 IU per mL (1.18 - 8.00 Log IU/mL).TACROLIMUS [id number] 13:18:00* Test Item Value Reference Range Comments TACROLIMUS BLOOD (BEAKER) (test uyyv=721) 5.7 ng/mL 10.0-20.0 [id number] 09:52:00* Test Item Value Reference Range Comments MAGNESIUM (BEAKER) (test rfip=606) 1.6 mg/dL 1.6-2.6 COMPREHENSIVE METABOLIC [id number] 09:52:00* Test Item Value Reference Range Comments TOTAL PROTEIN (BEAKER) (test oquo=601) 6.8 gm/dL 6.0-8.3 ALBUMIN (BEAKER) (test hkos=2116) 4.1 g/dL 3.5-5.0 ALKALINE PHOSPHATASE (BEAKER) (test mtxx=097) 143 U/L 40-150 BILIRUBIN TOTAL (BEAKER) (test jnvg=626) 0.7 mg/dL 0.2-1.2 SODIUM (BEAKER) (test cpbw=925) 138 meq/L 136-145 POTASSIUM (BEAKER) (test kcjx=230) 4.0 meq/L 3.5-5.1 CHLORIDE (BEAKER) (test nozc=143) 104 meq/L 98-107 CO2 (BEAKER) (test jyay=097) 28 meq/L 22-29 BLOOD UREA NITROGEN (BEAKER) (test lzfy=684) 11 mg/dL 7-21 CREATININE (BEAKER) (test hwlo=199) 0.95 mg/dL 0.57-1.25 GLUCOSE RANDOM (BEAKER) (test qswv=678) 85 mg/dL 70-105 CALCIUM (BEAKER) (test dnke=867) 9.6 mg/dL 8.4-10.2 AST (SGOT) (BEAKER) (test srci=541) 32 U/L 5-34 ALT (SGPT) (BEAKER) (test kkbi=710) 51 U/L 6-55 EGFR (BEAKER) (test vjcw=0880) 81 mL/min/1.73 sq m ESTIMATED GFR IS NOT ACCURATE CREATININE CLEARANCE IN PREDICTING GLOMERULAR FILTRATION RATE. ESTIMATED GFR IS NOT APPLICABLE FOR DIALYSIS PATIENTS. LIPID [id number] 09:52:00* Test Item Value Reference Range Comments TRIGLYCERIDES (BEAKER) (test wqjj=810) 62 mg/dL CHOLESTEROL (BEAKER) (test firs=254) 89 mg/dL HDL CHOLESTEROL (BEAKER) (test njsi=310) 35 mg/dL LDL CHOLESTEROL CALCULATED (BEAKER) (test kglp=923) 42 mg/dL Triglyceride Reference Range: Low Risk <150 Borderline 150-199 High Risk 200-499 Very High Risk >=500Cholesterol Reference Range: Low Risk <200 Borderline 200-239 High Risk >240HDL Cholesterol Reference Range: Low Risk >=60 High Risk <40LDL Cholesterol Reference Range: Optimal <100 Near Optimal 100-129 Borderline 130-159 High 160-189 Very High >=190 BILIRUBIN, [id number] 09:52:00* Test Item Value Reference Range Comments BILIRUBIN DIRECT (BEAKER) (test wqxh=076) 0.3 mg/dL 0.1-0.5 CBC W/PLT COUNT & AUTO [id number] 09:18:00* Test Item Value Reference Range Comments WHITE BLOOD CELL COUNT (BEAKER) (test onkk=302) 5.6 K/ L 3.5-10.5 RED BLOOD CELL COUNT (BEAKER) (test caij=831) 5.27 M/ L 4.63-6.08 HEMOGLOBIN (BEAKER) (test aqzm=340) 14.9 GM/DL 13.7-17.5 HEMATOCRIT (BEAKER) (test wgtj=693) 44.2 % 40.1-51.0 MEAN CORPUSCULAR VOLUME (BEAKER) (test slqg=104) 83.9 fL 79.0-92.2 MEAN CORPUSCULAR HEMOGLOBIN (BEAKER) (test yqcj=571) 28.3 pg 25.7-32.2 MEAN CORPUSCULAR HEMOGLOBIN CONC (BEAKER) (test zkoh=392) 33.7 GM/DL 32.3-36.5 RED CELL DISTRIBUTION WIDTH (BEAKER) (test jgkl=556) 12.3 % 11.6-14.4 PLATELET COUNT (BEAKER) (test mbvb=229) 141 K/CU MM 150-450 MEAN PLATELET VOLUME (BEAKER) (test gpxh=548) 10.4 fL 9.4-12.4 NUCLEATED RED BLOOD CELLS (BEAKER) (test igdc=684) 0 /100 WBC 0-0 NEUTROPHILS RELATIVE PERCENT (BEAKER) (test jyak=403) 57 % LYMPHOCYTES RELATIVE PERCENT (BEAKER) (test gldr=037) 30 % MONOCYTES RELATIVE PERCENT (BEAKER) (test tytx=031) 8 % EOSINOPHILS RELATIVE PERCENT (BEAKER) (test bkce=939) 5 % BASOPHILS RELATIVE PERCENT (BEAKER) (test xapy=406) 1 % NEUTROPHILS ABSOLUTE COUNT (BEAKER) (test wcyv=962) 3.21 K/ L 1.78-5.38 LYMPHOCYTES ABSOLUTE COUNT (BEAKER) (test xljl=555) 1.68 K/ L 1.32-3.57 MONOCYTES ABSOLUTE COUNT (BEAKER) (test rmbm=306) 0.42 K/ L 0.30-0.82 EOSINOPHILS ABSOLUTE COUNT (BEAKER) (test esvm=668) 0.25 K/ L 0.04-0.54 BASOPHILS ABSOLUTE COUNT (BEAKER) (test nzge=858) 0.03 K/ L 0.01-0.08 IMMATURE GRANULOCYTES-RELATIVE PERCENT (BEAKER) (test qcsz=9671) 0 % 0-1 POTASSIUM-STAT [id number] 09:04:00* Test Item Value Reference Range Comments POTASSIUM (BEAKER) (test dwzv=009) 3.3 meq/L 3.6-5.5 HGB/HCT (H&H) - STAT [id number] 08:57:00* Test Item Value Reference Range Comments HEMOGLOBIN (BEAKER) (test qxdt=471) 13.6 g/dL 13.0-16.8 HEMATOCRIT (BEAKER) (test nsbh=601) 40.0 % 40.0-50.0 ALKALINE [id number] 17:56:00* Test Item Value Reference Range Comments ALKALINE PHOSPHATASE (BEAKER) (test kiwy=728) 104 U/L 40-150 Effective 12/26/2013: Alkaline Phosphatase Reference Range Change-Adult onlyNew: 40-150 Previous: 30-115AST (SGOT)2016-07-28 17:56:00* Test Item Value Reference Range Comments AST (SGOT) (BEAKER) (test vkcx=519) 34 U/L 5-34 Specimen slightly hemolyzed BASIC METABOLIC [id number] 17:56:00* Test Item Value Reference Range Comments SODIUM (BEAKER) (test gtdp=260) 140 meq/L 136-145 POTASSIUM (BEAKER) (test ssoy=246) 3.6 meq/L 3.5-5.1 Specimen slightly hemolyzed CHLORIDE (BEAKER) (test hpcy=957) 105 meq/L 98-107 CO2 (BEAKER) (test etwq=747) 25 meq/L 22-29 BLOOD UREA NITROGEN (BEAKER) (test xuwz=055) 12 mg/dL 7-21 CREATININE (BEAKER) (test ybel=477) 0.96 mg/dL 0.57-1.25 Specimen slightly hemolyzed GLUCOSE RANDOM (BEAKER) (test rqim=233) 87 mg/dL 70-105 CALCIUM (BEAKER) (test ovaz=366) 9.5 mg/dL 8.4-10.2 EGFR (BEAKER) (test gkwb=1580) 80 mL/min/1.73 sq m ESTIMATED GFR IS NOT ACCURATE CREATININE CLEARANCE IN PREDICTING GLOMERULAR FILTRATION RATE. ESTIMATED GFR IS NOT APPLICABLE FOR DIALYSIS PATIENTS. PT/[id number] 17:36:00* Test Item Value Reference Range Comments PROTIME (BEAKER) (test mcij=617) 13.8 seconds 11.7-14.7 INR (BEAKER) (test udll=282) 1.1 <=5.9 PARTIAL THROMBOPLASTIN TIME (BEAKER) (test aajx=985) 33.1 seconds 22.5-36.0 RECOMMENDED COUMADIN/WARFARIN INR THERAPY RANGESSTANDARD DOSE: 2.0 - 3.0 Inclu dong: PROPHYLAXIS for venous thrombosis, systemic embolization; TREATMENT for danny ous thrombosis and/or pulmonary embolus.HIGH RISK: Target INR is 2.5-3.5 for pat ients with mechanical heart valves.CBC (HEMOGRAM ONLY)2016-07-28 17:33:00* Test Item Value Reference Range Comments WHITE BLOOD CELL COUNT (BEAKER) (test vbmg=837) 7.0 K/ L 4.0-10.0 RED BLOOD CELL COUNT (BEAKER) (test sdsj=120) 5.52 M/ L 4.20-5.80 HEMOGLOBIN (BEAKER) (test fujf=705) 15.8 GM/DL 13.0-16.8 HEMATOCRIT (BEAKER) (test vmcf=835) 48.0 % 40.0-50.0 MEAN CORPUSCULAR VOLUME (BEAKER) (test unvq=025) 87.0 fL 82.0-98.0 MEAN CORPUSCULAR HEMOGLOBIN (BEAKER) (test mwzh=349) 28.6 pg 27.0-33.0 MEAN CORPUSCULAR HEMOGLOBIN CONC (BEAKER) (test rewd=457) 32.9 GM/DL 32.0-36.0 RED CELL DISTRIBUTION WIDTH (BEAKER) (test ykfw=821) 14.1 % 10.3-14.2 PLATELET COUNT (BEAKER) (test lpnd=496) 128 K/CU MM 150-430 MEAN PLATELET VOLUME (BEAKER) (test upmq=058) 8.7 fL 6.5-10.5 NUCLEATED RED BLOOD CELLS (BEAKER) (test agyb=874) 0 /100 WBC 0-0 0.00TACROLIMUS [id number] 17:52:00* Test Item Value Reference Range Comments TACROLIMUS BLOOD (BEAKER) (test niso=349) 5.6 ng/mL 10.0-20.0 [id number] 12:58:00* Test Item Value Reference Range Comments MAGNESIUM (BEAKER) (test fvjt=732) 1.9 mg/dL 1.6-2.6 Specimen slightly hemolyzed COMPREHENSIVE METABOLIC [id number] 12:58:00* Test Item Value Reference Range Comments TOTAL PROTEIN (BEAKER) (test zhsx=937) 6.9 gm/dL 6.0-8.3 Specimen slightly hemolyzed ALBUMIN (BEAKER) (test oocx=3051) 4.2 g/dL 3.5-5.0 Specimen slightly hemolyzed ALKALINE PHOSPHATASE (BEAKER) (test zkey=056) 107 U/L 40-150 BILIRUBIN TOTAL (BEAKER) (test woop=565) 1.1 mg/dL 0.2-1.2 Specimen slightly hemolyzed SODIUM (BEAKER) (test kivc=816) 136 meq/L 136-145 POTASSIUM (BEAKER) (test zpbz=118) 3.6 meq/L 3.5-5.1 Specimen slightly hemolyzed CHLORIDE (BEAKER) (test rkib=670) 102 meq/L 98-107 CO2 (BEAKER) (test orfj=379) 24 meq/L 22-29 BLOOD UREA NITROGEN (BEAKER) (test uvsq=830) 17 mg/dL 7-21 CREATININE (BEAKER) (test qreh=793) 1.14 mg/dL 0.57-1.25 Specimen slightly hemolyzed GLUCOSE RANDOM (BEAKER) (test wezp=417) 182 mg/dL 70-105 CALCIUM (BEAKER) (test tdhy=354) 8.8 mg/dL 8.4-10.2 AST (SGOT) (BEAKER) (test bnii=315) 27 U/L 5-34 Specimen slightly hemolyzed ALT (SGPT) (BEAKER) (test cpfe=125) 34 U/L 6-55 Specimen slightly hemolyzed EGFR (BEAKER) (test bfvl=4400) 66 mL/min/1.73 sq m ESTIMATED GFR IS NOT ACCURATE CREATININE CLEARANCE IN PREDICTING GLOMERULAR FILTRATION RATE. ESTIMATED GFR IS NOT APPLICABLE FOR DIALYSIS PATIENTS. BILIRUBIN, [id number] 12:58:00* Test Item Value Reference Range Comments BILIRUBIN DIRECT (BEAKER) (test cluo=447) 0.4 mg/dL 0.1-0.5 Specimen slightly hemolyzed CBC W/PLT COUNT & AUTO [id number] 12:26:00* Test Item Value Reference Range Comments WHITE BLOOD CELL COUNT (BEAKER) (test pbqf=977) 4.9 K/ L 4.0-10.0 RED BLOOD CELL COUNT (BEAKER) (test izyk=168) 5.14 M/ L 4.20-5.80 HEMOGLOBIN (BEAKER) (test vhuz=743) 15.7 GM/DL 13.0-16.8 HEMATOCRIT (BEAKER) (test ejhk=880) 43.7 % 40.0-50.0 MEAN CORPUSCULAR VOLUME (BEAKER) (test kgzk=715) 85.0 fL 82.0-98.0 MEAN CORPUSCULAR HEMOGLOBIN (BEAKER) (test tdnl=678) 30.5 pg 27.0-33.0 MEAN CORPUSCULAR HEMOGLOBIN CONC (BEAKER) (test hecg=680) 35.8 GM/DL 32.0-36.0 RED CELL DISTRIBUTION WIDTH (BEAKER) (test xrbq=428) 12.6 % 10.3-14.2 PLATELET COUNT (BEAKER) (test qjbo=323) 95 K/CU MM 150-430 MEAN PLATELET VOLUME (BEAKER) (test fmsq=453) 9.2 fL 6.5-10.5 NUCLEATED RED BLOOD CELLS (BEAKER) (test ejcz=366) 0 /100 WBC 0-0 NEUTROPHILS RELATIVE PERCENT (BEAKER) (test kvvf=397) 65 % LYMPHOCYTES RELATIVE PERCENT (BEAKER) (test nfer=361) 25 % MONOCYTES RELATIVE PERCENT (BEAKER) (test xhzo=095) 7 % EOSINOPHILS RELATIVE PERCENT (BEAKER) (test eozj=899) 4 % BASOPHILS RELATIVE PERCENT (BEAKER) (test ivna=242) 0 % NEUTROPHILS ABSOLUTE COUNT (BEAKER) (test odfi=089) 3.15 K/ L 1.80-8.00 LYMPHOCYTES ABSOLUTE COUNT (BEAKER) (test bbzc=092) 1.22 K/ L 1.48-4.50 MONOCYTES ABSOLUTE COUNT (BEAKER) (test mwbb=911) 0.33 K/ L 0.00-1.30 EOSINOPHILS ABSOLUTE COUNT (BEAKER) (test drkb=673) 0.17 K/ L 0.00-0.50 BASOPHILS ABSOLUTE COUNT (BEAKER) (test rpee=957) 0.02 K/ L 0.00-0.20 0.00TACROLIMUS [id number] 12:56:00* Test Item Value Reference Range Comments TACROLIMUS BLOOD (BEAKER) (test wopc=329) 5.0 ng/mL 10.0-20.0 [id number] 12:37:00* Test Item Value Reference Range Comments MAGNESIUM (BEAKER) (test ovyf=693) 1.9 mg/dL 1.6-2.6 COMPREHENSIVE METABOLIC [id number] 12:37:00* Test Item Value Reference Range Comments TOTAL PROTEIN (BEAKER) (test vyac=605) 7.2 gm/dL 6.0-8.3 ALBUMIN (BEAKER) (test lbvm=3601) 4.4 g/dL 3.5-5.0 ALKALINE PHOSPHATASE (BEAKER) (test nzwl=532) 112 U/L 40-150 BILIRUBIN TOTAL (BEAKER) (test xafa=249) 1.0 mg/dL 0.2-1.2 SODIUM (BEAKER) (test hvfd=097) 138 meq/L 136-145 POTASSIUM (BEAKER) (test pjty=050) 3.8 meq/L 3.5-5.1 CHLORIDE (BEAKER) (test ixdx=420) 103 meq/L 98-107 CO2 (BEAKER) (test popx=740) 23 meq/L 22-29 BLOOD UREA NITROGEN (BEAKER) (test hahs=384) 17 mg/dL 7-21 CREATININE (BEAKER) (test olzr=615) 1.01 mg/dL 0.57-1.25 GLUCOSE RANDOM (BEAKER) (test ypyb=538) 97 mg/dL 70-105 CALCIUM (BEAKER) (test gdpa=059) 9.0 mg/dL 8.4-10.2 AST (SGOT) (BEAKER) (test jtqa=945) 30 U/L 5-34 ALT (SGPT) (BEAKER) (test kwsh=355) 50 U/L 6-55 EGFR (BEAKER) (test zgpz=0079) 76 mL/min/1.73 sq m ESTIMATED GFR IS NOT ACCURATE CREATININE CLEARANCE IN PREDICTING GLOMERULAR FILTRATION RATE. ESTIMATED GFR IS NOT APPLICABLE FOR DIALYSIS PATIENTS. BILIRUBIN, [id number] 12:37:00* Test Item Value Reference Range Comments BILIRUBIN DIRECT (BEAKER) (test oowm=713) 0.4 mg/dL 0.1-0.5 CBC W/PLT COUNT & AUTO [id number] 11:55:00* Test Item Value Reference Range Comments WHITE BLOOD CELL COUNT (BEAKER) (test rpiq=980) 5.9 K/ L 4.0-10.0 RED BLOOD CELL COUNT (BEAKER) (test tbiz=489) 5.29 M/ L 4.20-5.80 HEMOGLOBIN (BEAKER) (test rwjq=596) 15.8 GM/DL 13.0-16.8 HEMATOCRIT (BEAKER) (test ptkq=471) 46.1 % 40.0-50.0 MEAN CORPUSCULAR VOLUME (BEAKER) (test xdkr=417) 87.0 fL 82.0-98.0 MEAN CORPUSCULAR HEMOGLOBIN (BEAKER) (test btnb=760) 29.9 pg 27.0-33.0 MEAN CORPUSCULAR HEMOGLOBIN CONC (BEAKER) (test mhjx=995) 34.4 GM/DL 32.0-36.0 RED CELL DISTRIBUTION WIDTH (BEAKER) (test gujq=181) 12.2 % 10.3-14.2 PLATELET COUNT (BEAKER) (test ifdk=586) 133 K/CU MM 150-430 MEAN PLATELET VOLUME (BEAKER) (test mrox=414) 8.6 fL 6.5-10.5 NUCLEATED RED BLOOD CELLS (BEAKER) (test yczm=299) 0 /100 WBC 0-0 NEUTROPHILS RELATIVE PERCENT (BEAKER) (test hilk=260) 61 % LYMPHOCYTES RELATIVE PERCENT (BEAKER) (test fedp=183) 30 % MONOCYTES RELATIVE PERCENT (BEAKER) (test iktv=223) 6 % EOSINOPHILS RELATIVE PERCENT (BEAKER) (test swjm=915) 3 % BASOPHILS RELATIVE PERCENT (BEAKER) (test gfzh=838) 1 % NEUTROPHILS ABSOLUTE COUNT (BEAKER) (test txaa=371) 3.61 K/ L 1.80-8.00 LYMPHOCYTES ABSOLUTE COUNT (BEAKER) (test rwoj=310) 1.78 K/ L 1.48-4.50 MONOCYTES ABSOLUTE COUNT (BEAKER) (test ziyp=144) 0.34 K/ L 0.00-1.30 EOSINOPHILS ABSOLUTE COUNT (BEAKER) (test pmho=755) 0.16 K/ L 0.00-0.50 BASOPHILS ABSOLUTE COUNT (BEAKER) (test zchx=109) 0.05 K/ L 0.00-0.20 0.00TACROLIMUS [id number] 15:32:00* Test Item Value Reference Range Comments TACROLIMUS BLOOD (BEAKER) (test rvge=819) 6.2 ng/mL 10.0-20.0 [id number] 12:30:00* Test Item Value Reference Range Comments MAGNESIUM (BEAKER) (test lquz=158) 1.8 mg/dL 1.6-2.6 COMPREHENSIVE METABOLIC [id number] 12:30:00* Test Item Value Reference Range Comments TOTAL PROTEIN (BEAKER) (test blhw=989) 7.2 gm/dL 6.0-8.3 ALBUMIN (BEAKER) (test szpt=0653) 4.3 g/dL 3.5-5.0 ALKALINE PHOSPHATASE (BEAKER) (test xdhk=283) 127 U/L 40-150 BILIRUBIN TOTAL (BEAKER) (test ggtk=973) 0.7 mg/dL 0.2-1.2 SODIUM (BEAKER) (test blcz=642) 139 meq/L 136-145 POTASSIUM (BEAKER) (test rwux=437) 3.7 meq/L 3.5-5.1 CHLORIDE (BEAKER) (test ccxs=399) 103 meq/L 98-107 CO2 (BEAKER) (test afft=012) 25 meq/L 22-29 BLOOD UREA NITROGEN (BEAKER) (test izow=098) 17 mg/dL 7-21 CREATININE (BEAKER) (test rwam=730) 1.07 mg/dL 0.57-1.25 GLUCOSE RANDOM (BEAKER) (test xkrt=081) 152 mg/dL 70-105 CALCIUM (BEAKER) (test ihah=083) 9.3 mg/dL 8.4-10.2 AST (SGOT) (BEAKER) (test pmeu=405) 40 U/L 5-34 ALT (SGPT) (BEAKER) (test biln=927) 65 U/L 6-55 EGFR (BEAKER) (test rbsf=6856) 71 mL/min/1.73 sq m ESTIMATED GFR IS NOT ACCURATE CREATININE CLEARANCE IN PREDICTING GLOMERULAR FILTRATION RATE. ESTIMATED GFR IS NOT APPLICABLE FOR DIALYSIS PATIENTS. BILIRUBIN, [id number] 12:30:00* Test Item Value Reference Range Comments BILIRUBIN DIRECT (BEAKER) (test abpl=178) 0.3 mg/dL 0.1-0.5 CBC W/PLT COUNT & AUTO [id number] 11:52:00* Test Item Value Reference Range Comments WHITE BLOOD CELL COUNT (BEAKER) (test qghq=708) 5.6 K/ L 4.0-10.0 RED BLOOD CELL COUNT (BEAKER) (test dzla=460) 5.10 M/ L 4.20-5.80 HEMOGLOBIN (BEAKER) (test ckfx=962) 15.7 GM/DL 13.0-16.8 HEMATOCRIT (BEAKER) (test vdzg=902) 44.6 % 40.0-50.0 MEAN CORPUSCULAR VOLUME (BEAKER) (test zcoz=603) 87.5 fL 82.0-98.0 MEAN CORPUSCULAR HEMOGLOBIN (BEAKER) (test kytv=055) 30.8 pg 27.0-33.0 MEAN CORPUSCULAR HEMOGLOBIN CONC (BEAKER) (test rqtm=170) 35.2 GM/DL 32.0-36.0 RED CELL DISTRIBUTION WIDTH (BEAKER) (test ldll=429) 12.0 % 10.3-14.2 PLATELET COUNT (BEAKER) (test uvyw=524) 137 K/CU MM 150-430 MEAN PLATELET VOLUME (BEAKER) (test luiw=611) 8.1 fL 6.5-10.5 NUCLEATED RED BLOOD CELLS (BEAKER) (test vnzg=406) 0 /100 WBC 0-0 NEUTROPHILS RELATIVE PERCENT (BEAKER) (test dzes=450) 62 % LYMPHOCYTES RELATIVE PERCENT (BEAKER) (test oevb=531) 27 % MONOCYTES RELATIVE PERCENT (BEAKER) (test dwhy=630) 7 % EOSINOPHILS RELATIVE PERCENT (BEAKER) (test tqcq=810) 4 % BASOPHILS RELATIVE PERCENT (BEAKER) (test pzsv=885) 1 % NEUTROPHILS ABSOLUTE COUNT (BEAKER) (test gxlx=431) 3.48 K/ L 1.80-8.00 LYMPHOCYTES ABSOLUTE COUNT (BEAKER) (test gtej=130) 1.49 K/ L 1.48-4.50 MONOCYTES ABSOLUTE COUNT (BEAKER) (test lswq=393) 0.39 K/ L 0.00-1.30 EOSINOPHILS ABSOLUTE COUNT (BEAKER) (test wnul=126) 0.21 K/ L 0.00-0.50 BASOPHILS ABSOLUTE COUNT (BEAKER) (test wgvz=347) 0.04 K/ L 0.00-0.20 0.00
[2018-02-13] MEDS ORDERED: KETOROLAC TROMETHAMINE 60 MG/2 ML VIAL IM ONE (22:00)
[2018-02-13] MEDS ORDERED: DIAZEPAM 2 MG TAB PO ONE (22:00)
[2018-02-13] MEDS ORDERED: DEXAMETHASONE SOD PHOS 10 MG/1 ML VIAL INJ ONE (22:00)
[2018-02-13] MEDS ORDERED: DIAZEPAM 5 MG TAB ONE (22:15)
[2018-02-13] MEDS: PENTAZOCINE/NALOXONE 1 TAB PO PRN ×2 (22:24→22:26)
[2018-02-13 22:27] VITALS: BP 152/88
== END 2018-02-13 22:47 | disposition home or self-care (01) ==
LOC: ER 21:28
DX: M54.2 Cervicalgia (principal); S16.1XXA Strain of muscle, fascia and tendon at neck level, initial encounter; M62.830 Muscle spasm of back; I10 Essential (primary) hypertension; Z94.4 Liver transplant status; Z86.73 Personal history of transient ischemic attack (TIA), and cerebral infarction without residual deficits
CPT/HCPCS: 99282; J1100; J1885